=== PATIENT | female | born 1950 | race African-American/Black ===

== ENCOUNTER → 2017-06-24 | Outpatient (CLI) | payer OTHER ==
[~2017-06-24] MED LIST: ACETAMINOPHEN650 M5 PO; FLEXERIL PO; HI-CAL500 MG PO; HYDROCODON-ACE1 EAC7 PO; LISINOPRIL-HCT1 EAC1 PO; VITAMIN D-32000 UNI1 PO; VITAMIN D1000 UNI1 PO; VITAMINC500 PO; ZOSYN 3.3753.375 GM IV; [UNRECOGNIZED DRUG - OTHER]
== END ==
LOC: RAD 00:56
DX: Z12.31 Encounter for screening mammogram for malignant neoplasm of breast (principal)

== ENCOUNTER → 2018-07-09 | Outpatient (CLI) | payer OTHER | LOC: RAD 14:39 | DX: Z12.31 Encounter for screening mammogram for malignant neoplasm of breast (principal) ==

== ENCOUNTER → 2019-06-19 | Outpatient (CLI) | payer OTHER | LOC: RAD 01:54 | DX: Z12.31 Encounter for screening mammogram for malignant neoplasm of breast (principal) ==

== ENCOUNTER → 2020-06-16 | Outpatient (CLI) | payer OTHER | LOC: BC 11:00 | PROVIDERS: ATTEND Internal Medicine | DX: Z12.31 Encounter for screening mammogram for malignant neoplasm of breast (principal) ==

== ENCOUNTER → 2021-06-23 | Outpatient (CLI) | payer OTHER | LOC: BC 15:08 | PROVIDERS: ATTEND Internal Medicine | DX: Z12.31 Encounter for screening mammogram for malignant neoplasm of breast (principal) ==